=== PATIENT | female | born 1965 | race Two or more races ===

== ENCOUNTER 2020-10-02 07:42 | Day surgery (SDC) | payer OTHER ==
[~2020-10-02 07:42] MED LIST: PROTONIX40 MG PO; SYNTHROID88 MCG PO
== END 2020-10-02 15:20 | disposition home or self-care (01) ==
LOC: CIR.AMB 07:42
PROVIDERS: ATTEND Surgery
DX: C50.411 Malignant neoplasm of upper-outer quadrant of right female breast (principal); Z20.822 Contact with and (suspected) exposure to COVID-19